=== PATIENT | female | born 1970 ===

== ENCOUNTER 2020-08-19 20:09 | Inpatient (IN) | payer MEDICAID, OTHER ==
--- NOTE | 2020-08-19 21:11 | Emergency Department Report ---
HPI - General Chief Complaint: Dyspnea/Respdistress Time Seen by Provider: 08/19/20 20:47 - HPI HPI: Room 21 The patient is a 49-year-old female present with a chief complaint of shortness of breath. The patient states for the past 6 to 7 days she has had shortness of breath and chest soreness whenever she coughs. Patient states her cough has been productive of yellow sputum. Patient admits to fever at home of 39 C. The patient states she has not received a Covid vaccination. Patient complains of lower abdominal pain and buttocks pain whenever she coughs. ED Past Medical Hx - Past Medical History Hx Hypertension: Yes Hx Psychiatric Treatment: Yes ( anxiety) Hx Asthma: Yes Hx COPD: Yes (2 L home O2) - Surgical History Additional Surgical History: , hysterectomy, hernia repair, ovarian cyst removal - Family History Family history: no significant - Social History Smoking Status: Current Every Day Smoker (1 pack/day) Substance Use Type: None (Denies illicit drug use) ED Review of Systems ROS: Stated complaint: RESP DISTRESS Other details as noted in HPI Constitutional: fever Eyes: denies: eye pain ENT: denies: throat pain Respiratory: cough, shortness of breath Cardiovascular: as per HPI Endocrine: no symptoms reported Gastrointestinal: as per HPI Genitourinary: denies: dysuria Musculoskeletal: myalgia Neurological: denies: headache Physical Exam - Physical Exam Physical Exam: GENERAL: The patient is well-developed well-nourished female lying on stretcher not appearing to be in acute distress. [] HEENT: Normocephalic. Atraumatic. Extraocular motions are intact. Patient has moist mucous membranes. NECK: Supple. Trachea midline CHEST/LUNGS: Diffuse wheezing, diffuse rhonchi. There is no tachycardia. There is no gallop rub or murmur. ABDOMEN: Abdomen is soft, nontender. Patient has normal bowel sounds. There is no abdominal distention. SKIN: There is no rash. There is no edema. There is no diaphoresis. NEURO: The patient is awake, alert, and oriented. The patient is cooperative. The patient has no focal neurologic deficits. The patient has normal speech. GCS 15 MUSCULOSKELETAL:There is no evidence of acute injury. ED Course - Reevaluation(s) Reevaluation #1: 08/20/20 02:01 Patient's walking SPO2 decreased to 89% on 2 L nasal cannula. Will admit the patient to the hospital for further management ED Medical Decision Making - Lab Data Result diagrams: 08/19/20 21:11 08/19/20 21:11 Laboratory Tests 08/19/20 08/19/20 08/19/20 21:11 21:11 21:11 WBC 12.9 H RBC 4.62 Hgb 15.0 H Hct 43.2 H MCV 94 MCH 33 H MCHC 35 H RDW 13.5 Plt Count 319 Lymph % (Auto) 14.6 [place] % (Auto) 2.3 Eos % (Auto) 0.8 Baso % (Auto) 0.4 Lymph # (Auto) 1.9 [place] # (Auto) 0.3 Eos # (Auto) 0.1 Baso # (Auto) 0.0 Seg Neutrophils % 81.9 H Seg Neutrophils # 10.6 H PT 12.5 INR 0.89 Sodium 140 Potassium 3.9 Chloride 101.0 Carbon Dioxide 27 Anion Gap 16 BUN 11 Creatinine 0.5 L Estimated GFR > 60 BUN/Creatinine Ratio 22 Glucose 117 H Calcium 9.0 Total Bilirubin 0.20 AST 18 ALT 19 Alkaline Phosphatase 81 Troponin T NT-Pro-B Natriuret Pep Total Protein 7.1 Albumin 4.4 Albumin/Globulin Ratio 1.6 Lipase Urine Color Urine Turbidity Urine pH Ur Specific [place] Urine Protein Urine Glucose (UA) Urine Ketones Urine Blood Urine Nitrite Urine Bilirubin Urine Urobilinogen Ur Leukocyte Esterase Urine WBC (Auto) Urine RBC (Auto) U Epithel Cells (Auto) Urine Mucus 08/19/20 08/19/20 08/20/20 21:11 23:57 01:22 WBC RBC Hgb Hct MCV MCH MCHC RDW Plt Count Lymph % (Auto) [place] % (Auto) Eos % (Auto) Baso % (Auto) Lymph # (Auto) [place] # (Auto) Eos # (Auto) Baso # (Auto) Seg Neutrophils % Seg Neutrophils # PT INR Sodium Potassium Chloride Carbon Dioxide Anion Gap BUN Creatinine Estimated GFR BUN/Creatinine Ratio Glucose Calcium Total Bilirubin AST ALT Alkaline Phosphatase Troponin T < 0.010 < 0.010 NT-Pro-B Natriuret Pep 145.9 Total Protein Albumin Albumin/Globulin Ratio Lipase 26 Urine Color Yellow Urine Turbidity Clear Urine pH 6.0 Ur Specific [place] 1.009 Urine Protein <15 mg/dl Urine Glucose (UA) Neg Urine Ketones Neg Urine Blood Sm Urine Nitrite Neg Urine Bilirubin Neg Urine Urobilinogen < 2.0 Ur Leukocyte Esterase Neg Urine WBC (Auto) 1.0 Urine RBC (Auto) 1.0 U Epithel Cells (Auto) 1.0 Urine Mucus Few - EKG Data -: EKG Interpreted by Me EKG shows normal: sinus rhythm Rate: normal - EKG Data When compared to previous EKG there are: previous EKG unavailable Interpretation: other (No ischemic changes seen) - Radiology Data Radiology results: report reviewed (Chest x-ray, CT abdomen pelvis), image reviewed (Chest x-ray, CT abdomen pelvis) interpreted by me: Chest x-ray-no definite focal infiltrates, no pneumothorax [address] [address] XRay Report Signed Patient: ANIKA BRIONES MR#: [id number] : 1970 Acct:[id number] Age/Sex: 49 / F ADM Date: 08/19/20 Loc: ED Attending Dr: Ordering Physician: MANN SINGH MD Date of Service: 08/19/20 Procedure(s): XR chest 1V ap Accession Number(s): [id number] cc: MANN SINGH MD Fluoro Time In Minutes: CHEST 1 VIEW 08/19/2020 8:25 PM INDICATION / CLINICAL INFORMATION: Shortness of breath. COMPARISON: None available. FINDINGS: SUPPORT DEVICES: None. HEART / MEDIASTINUM: No significant abnormality. LUNGS / PLEURA: No significant pulmonary or pleural abnormality. No pneumothorax. ADDITIONAL FINDINGS: No significant additional findings. IMPRESSION: 1. No acute findings. Signer Name: Blanca Hernández MD Signed: 08/19/2020 9:32 PM Workstation Name: [id number] Transcribed By: DT Dictated By: Devon Hernández MD Electronically Authenticated By: Devon Hernández MD Signed Date/Time: 08/19/202131 DD/ 29 TD/TT: Print Cancel [address] [address] Cat Scan Report Signed Patient: ANIKA BRIONES MR#: [id number] : 1970 Acct:[id number] Age/Sex: 49 / F ADM Date: 08/19/20 Loc: ED Attending Dr: Ordering Physician: MANN SINGH MD Date of Service: 08/19/20 Procedure(s): CT abdomen pelvis wo con Accession Number(s): [id number] cc: MANN SINGH MD CT ABDOMEN AND PELVIS WITHOUT CONTRAST HISTORY: Left flank pain. COMPARISON: None. TECHNIQUE: CT images of the abdomen and pelvis were obtained without administration of intravenous contrast. All CT scans at this location are performed using CT dose reduction for ALARA by means of automated exposure co ntrol. FINDINGS: Lungs/bones: Patchy multifocal areas of density and groundglass opacities in the lung bases with bilateral atelectasis Abdomen/pelvis: There is diffuse fatty infiltration of the liver which is enlarged. Adrenal glands, spleen and gallbladder appears normal. There is a pancreatic mass in the pancreatic tail measuring 3.1 x 1.9 cm. No pancreatic ductal dilatation. Appendix appears normal. Urinary bladder appears normal. No retroperitoneal adenopathy. No hydronephrosis. Ureters appear normal bilaterally. No acute bone findings are identified. Postsurgical change from prior hernia repair suggested. IMPRESSION: 1. Hepatomegaly with hepatic steatosis. 2. Groundglass patchy opacities in bilateral lower lungs could represent atypical infection, nonspecific. Bilateral atelectasis. 3. No renal or ureteral stone. No hydronephrosis. Signer Name: Chris Ruvalcaba MD Signed: 08/20/2020 1:18 AM Workstation Name: [id number] Transcribed By: CW Dictated By: BRIAN RUVALCABA MD Electronically Authenticated By: BRIAN RUVALCABA MD Signed Date/Time: 08/20/20117 DD/ 4 TD/TT: Print Cancel - Differential Diagnosis Pneumonia, bronchitis, COVID-19, costochondritis Critical care attestation.: If time is entered above; I have spent that time in minutes in the direct care of this critically ill patient, excluding procedure time. ED Disposition Clinical Impression: Bilateral pneumonia, COPD exacerbation, Hypoxia, Suspected COVID-19 virus infection Disposition: OP ADMIT IP TO THIS HOSP Is pt being admited?: Yes Does the pt Need Aspirin: Yes Condition: Fair Instructions: Bacterial Pneumonia (ED), Chronic Obstructive Pulmonary Disease (ED) Referrals: PRIMARY CARE, [Primary Care Provider] - 3-5 Days Time of Disposition: 02:02 (Hospitalist notified (Mildred))
[2020-08-19 21:47] LABS: Alanine Aminotransferase 19 units/L (7-56); Albumin 4.4 g/dL (3.9-5); Blood Urea Nitrogen 11 mg/dL (7-17); Hemolysis Index 1
[2020-08-19 21:53] LABS: BUN/Creatinine Ratio 22; Basophils % (Auto) 0.4 % (0.0-1.8); Eosinophils # (Auto) 0.1 K/mm3 (0.0-0.4); Eosinophils % (Auto) 0.8 % (0.0-4.3); Hematocrit 43.2 % (30.3-42.9); Lymphocytes # (Auto) 1.9 K/mm3 (1.2-5.4); Lymphocytes % (Auto) 14.6 % (13.4-35.0); Mean Corpuscular HGB Conc 35 % (30-34); Mean Corpuscular Volume 94 fl (79-97); Monocytes # (Auto) 0.3 K/mm3 (0.0-0.8); Monocytes % (Auto) 2.3 % (0.0-7.3); Platelet Count 319 K/mm3 (140-440); Red Blood Count 4.62 M/mm3 (3.65-5.03); Red Cell Distribution Width 13.5 % (13.2-15.2)
[2020-08-19 22:02] LABS: INR 0.89 (0.87-1.13)
[2020-08-19] MEDS ORDERED: MAGNESIUM SULFATE 2 GM/50 ML BAG IV ONE (23:15)
[2020-08-19] MEDS ORDERED: ALBUTEROL 2.5 MG/3 ML NEBU IH ONE (23:15)
[2020-08-19] MEDS ORDERED: methylPREDNISolone Sod Succinate 125 MG/2 ML INJ IV ONE (23:15)
[2020-08-19] MEDS ORDERED: IPRATROPIUM 0.02% NEBU 2.5 ML IH ONE (23:15)
[2020-08-19] MEDS ORDERED: ONDANSETRON 4 MG/2 ML INJ IV ONE (23:21)
[2020-08-19] MEDS ORDERED: fentaNYL 100 MCG/2 ML INJ IV ONE (23:21)
[2020-08-20 00:12] LABS: Bilirubin,Urine NEG (Negative); Blood,Urine SM (Negative); Color,Urine Yellow (Yellow); Mucus,Urine FEW /HPF; Protein,Urine <15 mg/dL mg/dL (Negative); Urobilinogen,Urine < 2.0 mg/dL (<2.0)
[2020-08-20] MEDS ORDERED: AZITHROMYCIN/NS 500 MG/250 ML 500 MG/250 ML BAG IV ONE (01:59)
[2020-08-20] MEDS ORDERED: cefTRIAXone/NS 1 GM/50 ML 1 GM/50 ML BAG IV ONE (01:59)
--- NOTE | 2020-08-20 02:41 | History and Physical Report ---
History of Present Illness Date of examination: 08/20/20 Date of admission: 08/20/20 Chief complaint: COPD exacerbation History of present illness: The patient is a 49-year-old female present with a chief complaint of shortness of breath. The patient states for the past 6 to 7 days she has had shortness of breath and chest soreness whenever she coughs. Patient states her cough has been productive of yellow sputum. Patient admits to fever at home of 39 C. The patient states she has not received a Covid vaccination. Patient complains of lower abdominal pain and buttocks pain whenever she coughs. ED work-up WBC 12.9 hemoglobin 15.0, platelets 319, creatinine 0.5, serum glucose 117, troponin negative, BNP 145, CT of the abdomen and pelvics done and it shows hepatomegaly with hepatic steatosis, groundglass patchy opacity in bilateral lower lung likely secondary to bacterial infection/Covid infection, but negative for renal stone or hydronephrosis. Patient is seen at her bedside. Patient alert and oriented x3 patient is on oxygen at 2 L nasal cannula. Patient medical record patient uses oxygen at home. Will admit patient for COPD exacerbation and pneumonia. Past History Past Medical History: COPD Past Surgical History: No surgical history Social history: no significant social history, lives with family Family history: no significant family history Medications and Allergies Allergies Allergy/AdvReac Type Severity Reaction Status Date / Time No Known Allergies Allergy Verified 08/19/20 23:16 Active Meds: Active Medications Azithromycin (Zithromax/Ns) 500 mg in 250 mls @ 250 mls/hr IV ONCE ONE; Protocol Stop: 08/20/20 02:58 Review of Systems Constitutional: fatigue Ears, nose, mouth and throat: no epistaxis, no bleeding gums Cardiovascular: shortness of breath Respiratory: cough, cough with sputum, shortness of breath, dyspnea on exertion, wheezing Gastrointestinal: no melena Rectal: no hemorrhoids Integumentary: no rash, no pruritis Neurological: no head injury Psychiatric: no suicidal ideation, no disorientation, no hallucinations Hematologic/Lymphatic: no easy bruising, no easy bleeding Allergic/Immunologic: no urticaria, no allergic rhinitis Exam - Constitutional Vitals: Temp Pulse Resp BP Pulse Ox 84 20 146/127 87 08/20/20 01:40 08/20/20 01:40 08/20/20 00:01 08/20/20 01:40 General appearance: Present: mild distress, well-nourished - EENT Eyes: Present: PERRL ENT: hearing intact, clear oral mucosa - Neck Neck: Present: supple, normal ROM - Respiratory Respiratory effort: normal Respiratory: bilateral: CTA - Cardiovascular Heart rate: 84 Heart Sounds: Present: S1 & S2. Absent: rub, click - Extremities Extremities: pulses symmetrical, No edema Peripheral Pulses: within normal limits - Abdominal General gastrointestinal: Present: soft, non-tender, non-distended, normal bowel sounds Female genitourinary: Present: normal - Integumentary Integumentary: Present: clear, warm, dry - Musculoskeletal Musculoskeletal: gait normal, strength equal bilaterally - Psychiatric Psychiatric: appropriate mood/affect, intact judgment & insight, cooperative - Neurologic Neurologic: CNII-XII intact, moves all extremities - Allied Health Allied health notes reviewed: nursing, PT HEART Score - HEART Score Troponin: Troponin T < 0.010 ng/mL (0.00-0.029) 08/20/20 01:22 Results - Labs CBC & Chem 7: 08/19/20 21:11 08/19/20 21:11 Labs: Abnormal lab results 08/19/20 08/19/20 Range/Units 21:11 21:11 WBC 12.9 H (4.5-11.0) K/mm3 Hgb 15.0 H (10.1-14.3) gm/dl Hct 43.2 H (30.3-42.9) % MCH 33 H (28-32) pg MCHC 35 H (30-34) % Seg Neutrophils % 81.9 H (40.0-70.0) % Seg Neutrophils # 10.6 H (1.8-7.7) K/mm3 Creatinine 0.5 L (0.6-1.2) mg/dL Glucose 117 H (65-100) mg/dL Assessment and Plan - Patient Problems (1) COPD exacerbation Current Visit: Yes Status: Acute Plan to address problem: respiratory care bronchodilator and oxygen supplement Director Outcomes consult (2) Bilateral pneumonia Current Visit: Yes Status: Acute Plan to address problem: Continue antibiotic therapy Blood culture ABGs, advised on use of incentive spirometer (3) Hypoxia Current Visit: Yes Status: Acute Plan to address problem: 2/2 to COPD/PNA Continue abx therapy and supplement oxygen (4) Suspected COVID-19 virus infection Current Visit: Yes Status: Acute Plan to address problem: Isolation per covid protocol Pt said she did not get covid vaccine abx therapy ascorbic acid, vitamin d, and zinc sulphate check inflammatory [id number] (5) DVT prophylaxis Current Visit: Yes Status: Acute Plan to address problem: lovenox
[2020-08-20] MEDS ORDERED: ALUM-MAG HYDROXIDE-SIMETHICONE 200-200-20MG/5ML ORAL LIQD 30 ML PO PRN (04:08)
[2020-08-20] MEDS ORDERED: METOCLOPRAMIDE 10 MG/2 ML INJ IV PRN (04:08)
[2020-08-20] MEDS ORDERED: SENNOSIDES 8.6 MG TAB PO PRN (04:08)
[2020-08-20] MEDS ORDERED: ACETAMINOPHEN 325 MG TAB PO PRN (04:08)
[2020-08-20] MEDS ORDERED: ONDANSETRON 4 MG/2 ML INJ IV PRN (04:08)
[2020-08-20] MEDS ORDERED: traZODone 50 MG TAB PO PRN (04:14)
[2020-08-20] MEDS: traMADol 50 MG TAB PO PRN ×2 (05:18→22:37)
[2020-08-20 07:21] LABS: C-Reactive Protein 1.3 mg/dL (0.00-1.30)
--- NOTE | 2020-08-20 07:22 | Event Note ---
Date: 08/20/20 Patient feels better. 49-year-old shortness of breath for 6 to 7 days yellow productive cough low-grade fever found to be hypoxic on admission. Patient currently saturating well with 2 L. I did review CT scan results with her with hepatomegaly and groundglass opacities on bilateral lungs. Patient did have some lower abdominal pain is since resolving. Chest x-ray essentially unremarkable the groundglass appearance was found on CT scan. #1 COPD with pneumonia. #2 persons adventures for COVID-19 pneumonia. #3 bilateral pneumonia #4 diabetes #5 hypertension #6 generalized anxiety disorder. All medications will be reconciled now.
[2020-08-20] MEDS: ALBUTEROL 2.5 MG/3 ML NEBU IH SCH ×3 (08:21→21:47)
[2020-08-20] MEDS: ENOXAPARIN 40 MG/0.4 ML INJ SUB-Q SCH (09:04)
[2020-08-20] MEDS: ASCORBIC ACID 500 MG TAB PO SCH (09:05)
[2020-08-20] MEDS: CHOLECALCIFEROL (VIT D3) 5,000 UNIT TAB PO SCH (09:05)
[2020-08-20] MEDS: ZINC SULFATE 220 MG CAP PO SCH (09:05)
[2020-08-20] MEDS ORDERED: NON-FORMULARY EACH (Alprazolam [Xanax Tab] 2 MG Tablet) PO PRN (09:53)
[2020-08-20] MEDS ORDERED: NON-FORMULARY EACH (Budesonide/Formoterol Fumarate [Budesonide-Formoterol 160-4.5] 10.2 GM IH SCH (10:00)
[2020-08-20] MEDS ORDERED: NON-FORMULARY EACH (Albuterol Sulfate [Proair Respiclick] 90 MCG Aer.Pow.Ba) IH SCH (10:00)
[2020-08-20] MEDS ORDERED: NON-FORMULARY EACH (Omeprazole [Omeprazole] 40 MG Capsule.Dr) PO SCH (10:00)
[2020-08-20] MEDS ORDERED: ALBUTEROL 2.5 MG/3 ML NEBU IH PRN (10:13)
[2020-08-20] MEDS ORDERED: ALPRAZolam 1 MG TAB PO PRN (10:25)
--- NOTE | 2020-08-20 10:35 | Event Note ---
Date: 08/20/20 patient admitted for COPD exacerbation and abdominal pain, concern for COVID. 1. Stop all nebs 2. Keep patient as dry as possible 3. Will start IV steroids, as this will help if COVID positive 4. Prone 5. Pain control per primary.
[2020-08-20] MEDS: FUROSEMIDE 20 MG/2 ML INJ IV ONE ×2 (11:00→11:08)
[2020-08-20] MEDS: methylPREDNISolone Sod Succinate 40 MG/1 ML INJ IV SCH ×2 (11:00→18:01)
[2020-08-20] MEDS: PANTOPRAZOLE 40 MG TAB PO SCH ×2 (11:00→21:33)
[2020-08-20] MEDS: buPROPion XL 150 MG TAB PO SCH (11:01)
[2020-08-20] MEDS: GABAPENTIN 100 MG CAP PO SCH ×2 (11:01→17:56)
[2020-08-20] MEDS: rOPINIRole 1 MG TAB PO SCH (21:33)
[2020-08-20] MEDS: MONTELUKAST 10 MG TAB PO SCH (21:33)
[2020-08-20] MEDS: ARFORMOTEROL 15 MCG/2 ML NEBU IH SCH (21:46)
[2020-08-20] MEDS: BUDESONIDE 0.5 MG/2 ML NEBU IH SCH (21:47)
[2020-08-20] MEDS ORDERED: NON-FORMULARY EACH (Montelukast 10 MG) PO SCH (22:00)
[2020-08-20] MEDS ORDERED: ZOLPIDEM 5 MG TAB PO PRN (22:00)
[2020-08-20] MEDS ORDERED: MORPHINE 2 MG/1 ML INJ IV ONE (23:03)
[2020-08-21] MEDS: GABAPENTIN 100 MG CAP PO SCH ×3 (02:48→17:57)
[2020-08-21] MEDS: methylPREDNISolone Sod Succinate 40 MG/1 ML INJ IV SCH ×3 (02:48→18:22)
[2020-08-21] MEDS: cefTRIAXone/NS 2 GM/100 ML 2 GM/100 ML BAG IV SCH (04:40)
[2020-08-21] MEDS: AZITHROMYCIN/NS 500 MG/250 ML 500 MG/250 ML BAG IV SCH (04:41)
[2020-08-21 07:31] LABS: Hematocrit 38.4 % (30.3-42.9); Hemoglobin 13.3 gm/dl (10.1-14.3); Mean Corpuscular HGB Conc 35 % (30-34); Mean Corpuscular Volume 94 fl (79-97); Platelet Count 318 K/mm3 (140-440); Red Blood Count 4.07 M/mm3 (3.65-5.03); Red Cell Distribution Width 13.7 % (13.2-15.2)
[2020-08-21 07:49] LABS: Alanine Aminotransferase 29 units/L (7-56); Albumin 4.2 g/dL (3.9-5); Blood Urea Nitrogen 13 mg/dL (7-17); Calcium 9.3 mg/dL (8.4-10.2); Hemolysis Index 2
[2020-08-21 07:53] LABS: BUN/Creatinine Ratio 33
--- NOTE | 2020-08-21 08:08 | Progress Note ---
Assessment and Plan - Patient Problems (1) Bilateral pneumonia Current Visit: Yes Status: Acute Plan to address problem: Patient with bilateral groundglass appearance on CT scan unremarkable chest x- ray. When visualized CT scan no halo. Appears to be diffuse versus mosaic in appearance Could be infectious etiology versus inflammatory at this point. Patient has a long history of smoking. Therefore will suggest further outpatient work-up. For now we will treat for possibly underlying atypical infection Continue to treat COPD. Antibiotics to cover atypical organisms (2) COPD exacerbation Current Visit: Yes Status: Acute Plan to address problem: Patient ruled out for COVID-19. Will resume nebulizers -Nebulizers every 6 hours has improved patient's oxygenation -Maintain empiric antibiotics -Continue patient on metered-dose inhalers now -IV steroids in anticipation of change to p.o. steroids for potential discharge 1 to 2 days (3) DVT prophylaxis Current Visit: Yes Status: Acute Plan to address problem: Lovenox (4) Hypoxia Current Visit: Yes Status: Acute Plan to address problem: Resolving with 4 L oxygen will wean down as tolerated to 3 L today and continue progression. Subjective Date of service: 08/21/20 Principal diagnosis: Acute hypoxic respiratory failure COPD exacerbation Interval history: 49-year-old female presents with acute hypoxic respiratory failure secondary to COPD. Patient's advanced tobacco use for greater than 35 years. Unknown pack- year history. Presented yesterday with acute hypoxic respiratory failure. Chest x-ray unremarkable however CT scan findings showed bilateral groundglass appearances. Patient placed on nebulizers, steroids and empiric antibiotics. Patient also restarted on her scheduled metered-dose inhalers which included a LABA and inhaled steroid. Patient today states that she feels much better foster billy still has a lot of phlegm and cough. No fever chills. States respirations are improved. Patient also ruled out for COVID-19 via recent serology Objective - Constitutional Vitals: Vital Signs - 12hr 08/20/20 08/20/20 08/20/20 20:45 21:43 22:00 Temperature 97.8 F Pulse Rate 54 L Pulse Rate [ 58 L Anterior Bilateral Throughout] Respiratory 24 Rate Respiratory 18 Rate [Anterior Bilateral Throughout] Blood Pressure 132/70 O2 Sat by Pulse 96 95 Oximetry 08/20/20 08/21/20 08/21/20 23:43 00:13 04:45 Temperature 98.6 F Pulse Rate 50 L Pulse Rate [ Anterior Bilateral Throughout] Respiratory 20 18 20 Rate Respiratory Rate [Anterior Bilateral Throughout] Blood Pressure 126/64 O2 Sat by Pulse 94 Oximetry General appearance: Present: no acute distress, well-nourished - Respiratory Respiratory: bilateral: diminished, wheezing, negative: rhonchi (Few rhonchi bilaterally as well.) - Breasts Breasts: deferred - Cardiovascular Rhythm: regular Heart Sounds: Present: S1 & S2. Absent: gallop, rub Extremities: pulses intact, No edema, normal color, Full ROM - Gastrointestinal General gastrointestinal: Present: soft, non-tender, non-distended, normal bowel sounds - Musculoskeletal Musculoskeletal: strength equal bilaterally, generalized weakness - Neurologic Neurologic: moves all extremities - Psychiatric Psychiatric: memory intact, appropriate mood/affect, intact judgment & insight - Labs CBC & Chem 7: 08/21/20 06:15 08/21/20 06:15 Labs: Abnormal lab results 08/20/20 08/20/20 08/20/20 Range/Units 11:03 16:43 21:42 WBC (4.5-11.0) K/mm3 MCH (28-32) pg MCHC (30-34) % Creatinine (0.6-1.2) mg/dL Glucose (65-100) mg/dL POC Glucose 155 H 163 H 167 H (70-105) mg/dL 08/21/20 08/21/20 08/21/20 Range/Units 06:15 06:15 07:38 WBC 17.7 H (4.5-11.0) K/mm3 MCH 33 H (28-32) pg MCHC 35 H (30-34) % Creatinine 0.4 L (0.6-1.2) mg/dL Glucose 156 H (65-100) mg/dL POC Glucose 168 H (70-105) mg/dL HEART Score - HEART Score Troponin: Troponin T < 0.010 ng/mL (0.00-0.029) 08/20/20 01:22
[2020-08-21] MEDS: BUDESONIDE 0.5 MG/2 ML NEBU IH SCH ×2 (08:20→19:17)
[2020-08-21] MEDS: ALBUTEROL 2.5 MG/3 ML NEBU IH SCH ×4 (08:20→19:20)
[2020-08-21] MEDS: ARFORMOTEROL 15 MCG/2 ML NEBU IH SCH ×2 (08:21→19:17)
[2020-08-21] MEDS: PANTOPRAZOLE 40 MG TAB PO SCH ×2 (09:25→22:10)
[2020-08-21] MEDS: ZINC SULFATE 220 MG CAP PO SCH (09:25)
[2020-08-21] MEDS: CHOLECALCIFEROL (VIT D3) 5,000 UNIT TAB PO SCH (09:25)
[2020-08-21] MEDS: ENOXAPARIN 40 MG/0.4 ML INJ SUB-Q SCH (09:25)
[2020-08-21] MEDS: ASCORBIC ACID 500 MG TAB PO SCH (09:25)
[2020-08-21] MEDS: buPROPion XL 150 MG TAB PO SCH (09:25)
[2020-08-21] MEDS ORDERED: PROMETHAZINE/CODEINE 6.25-10 MG ORAL LIQD 5 ML PO PRN (10:58)
--- NOTE | 2020-08-21 11:52 | Progress Note ---
Assessment and Plan 49 y/o female with acute respiratory failure. 1. Continue steroids, given concern for COPD 2. Ok with nebs, now that covid test is negative 3. Continue to keep patient as dry as possible 4. Needs bedside jason, will ask RT's if this can be done in house. Would suggest follow up and do as outpatient but patient has no funding 5. Wean FIO2 for sats >88%, will need walk test prior to discharge. Subjective Date of service: 08/21/20 Principal diagnosis: Acute hypoxic respiratory failure COPD exacerbation Interval history: Covid negative. Stable on 4 liters NC. Objective Vital Signs - 12hr 08/21/20 08/21/20 08/21/20 00:13 04:45 08:00 Temperature 98.6 F Pulse Rate 50 L Pulse Rate [ 93 H Anterior Bilateral Throughout] Respiratory 18 20 Rate Respiratory 19 Rate [Anterior Bilateral Throughout] Blood Pressure 126/64 O2 Sat by Pulse 94 Oximetry 08/21/20 08/21/20 08:22 08:40 Temperature Pulse Rate Pulse Rate [ Anterior Bilateral Throughout] Respiratory Rate Respiratory Rate [Anterior Bilateral Throughout] Blood Pressure O2 Sat by Pulse 98 95 Oximetry CBC and BMP: 08/21/20 06:15 08/21/20 06:15 ABG, PT/INR, D-dimer: PT/INR, D-dimer PT 12.5 Sec. (12.2-14.9) 08/19/20 21:11 INR 0.89 (0.87-1.13) 08/19/20 21:11 D-Dimer 215.79 ng/mlDDU (0-234) 08/20/20 06:05 Abnormal lab findings: Abnormal Labs 08/19/20 08/19/20 08/20/20 21:11 21:11 06:05 WBC 12.9 H Hgb 15.0 H Hct 43.2 H MCH 33 H MCHC 35 H Seg Neutrophils % 81.9 H Seg Neutrophils # 10.6 H Creatinine 0.5 L Glucose 117 H POC Glucose Lactate Dehydrogenase 205 H 08/20/20 08/20/20 08/20/20 11:03 16:43 21:42 WBC Hgb Hct MCH MCHC Seg Neutrophils % Seg Neutrophils # Creatinine Glucose POC Glucose 155 H 163 H 167 H Lactate Dehydrogenase 08/21/20 08/21/20 08/21/20 06:15 06:15 07:38 WBC 17.7 H Hgb Hct MCH 33 H MCHC 35 H Seg Neutrophils % Seg Neutrophils # Creatinine 0.4 L Glucose 156 H POC Glucose 168 H Lactate Dehydrogenase 08/21/20 11:31 WBC Hgb Hct MCH MCHC Seg Neutrophils % Seg Neutrophils # Creatinine Glucose POC Glucose 118 H Lactate Dehydrogenase
--- NOTE | 2020-08-21 14:18 | Consultation ---
History of Present Illness - Reason for Consult Consult date: 08/21/20 r/o COVID Requesting physician: FARHAD BOWSER - History of Present Illness 49-year-old female with tobacco abuse, asthma, hypertension, anxiety, admitted on 08/19/2020 secondary to 2-week history of worsening shortness of breath associated with cough with yellow sputum and a fever at home. Patient has not been vaccinated for COVID-19. Patient smokes a pack a day for several years. Patient recently traveled to [place] voluntarily on 08/03/2019 of symptoms. She was tested for COVID-19 which was negative. On arrival, temperature 98, HR 83, RR 22, O2 sat dropped to 89 ambulation, BP 148/87. Initial WBC 12.9. Hemoglobin 15. Platelets 319. D-dimer 215. CRP 1.3. Urinalysis negative. SARS-CoV-2 PCR negative. Chest x-ray unremarkable. CT abdomen shows hepatomegaly with hepatic steatosis. Review of Systems: positive in bold print General: fever, chills, malaise Cutaneous: rash, pruritus Head: headaches or injury Eyes: changes in vision, eye pain, double vision Ears: ear pain, ear discharge, ringing or hearing loss Nose: nose bleeding, stuffiness Mouth & throat: bleeding gums, horseness, no dental problems, or swollen glands Neck: no pain, node enlargement/lumps, tyroid enlargement or tenderness Respiratory: SOB, cough, [place], wheezing, sputum, hemoptysis, pleuritic chest pain Cardiovascular: chest pain, leg edema, cyanosis, [place], orthopnea Musculoskeletal: edema, deformities, pain Gastrointestinal: nausea, vomiting, hematemesis, diarrhea, constipation, melena, bright red blood in stools, fecal incontinence, jaundice Genitourinary/Reproductive: frequent urination, dysuria, hematuria, incontinence Neurogical: seizures, headaches, weakness, paresthesias, loss of speech or vision; memory loss, vertigo, tremors, numbness Psychiatric: stable mood; excessive anxiety, sadness or moodiness Past History Past Medical History: COPD Past Surgical History: No surgical history Social history: no significant social history, lives with family Family history: no significant family history Medications and Allergies Allergies Allergy/AdvReac Type Severity Reaction Status Date / Time No Known Allergies Allergy Verified 08/19/20 23:16 Home Medications Medication Instructions Recorded Confirmed Last Taken Type ALPRAZolam [Xanax TAB] 2 mg PO BID PRN 08/20/20 08/20/20 Unknown History Albuterol Sulfate [Proair 90 mcg IH PRN 08/20/20 08/20/20 Unknown History Respiclick] Budesonide/Formoterol Fumarate 10.2 gm IH PRN 08/20/20 08/20/20 Unknown History [Budesonide-Formoterol 160-4.5] Cetirizine HCl [Cetirizine 10mg 10 mg PO BID 08/20/20 08/20/20 Unknown History chew] Gabapentin [Neurontin] 100 mg PO Q8HR 08/20/20 08/20/20 Unknown History Montelukast 10 mg PO QHS 08/20/20 08/20/20 Unknown History Omeprazole 40 mg PO BID 08/20/20 08/20/20 Unknown History Zolpidem [Ambien] 5 mg PO QHS PRN 08/20/20 08/20/20 Unknown History buPROPion XL [Wellbutrin Xl] 150 mg PO QAM 08/20/20 08/20/20 Unknown History rOPINIRole [Requip] 2 mg PO QHS 08/20/20 08/20/20 Unknown History Active Meds: Active Medications Acetaminophen (Acetaminophen 325 Mg Tab) 650 mg PO Q4H PRN PRN Reason: Pain MILD(1-3)/Fever >100.5/GARCIA Al Hydrox/Mg Hydrox/Simethicone (Alum-Mag Hydroxide-Simethicone [phone]/5ml Oral Liqd 30 Ml) 30 ml PO Q4H PRN PRN Reason: Indigestion Albuterol (Albuterol 2.5 Mg/3 Ml Nebu) 2.5 mg IH Q6HRT [facility] Last Admin: 08/21/20 13:23 Dose: 2.5 mg Documented by: Albuterol (Albuterol 2.5 Mg/3 Ml Nebu) 2.5 mg IH Q4H PRN PRN Reason: Shortness Of Breath Alprazolam (Alprazolam 1 Mg Tab) 2 mg PO Q12H PRN PRN Reason: Anxiety Last Admin: 08/20/20 17:56 Dose: 2 mg Documented by: Alprazolam (Alprazolam 1 Mg Tab) 1 mg PO BID [facility] Arformoterol Tartrate (Arformoterol 15 Mcg/2 Ml Nebu) 15 mcg IH Q12HRT [facility] Last Admin: 08/21/20 08:21 Dose: 15 mcg Documented by: Ascorbic Acid (Ascorbic Acid 500 Mg Tab) 500 mg PO QDAY [facility] Last Admin: 08/21/20 09:25 Dose: 500 mg Documented by: Budesonide (Budesonide 0.5 Mg/2 Ml Nebu) 0.5 mg IH Q12HRT [facility] Last Admin: 08/21/20 08:20 Dose: 0.5 mg Documented by: Bupropion HCl (Bupropion Xl 150 Mg Tab) 150 mg PO QAM [facility] Last Admin: 08/21/20 09:25 Dose: 150 mg Documented by: Cholecalciferol (Cholecalciferol (Vit D3) 5,000 Unit Tab) 5,000 unit PO DAILY [facility] Last Admin: 08/21/20 09:25 Dose: 5,000 unit Documented by: Enoxaparin Sodium (Enoxaparin 40 Mg/0.4 Ml Inj) 40 mg SUB-Q DAILY [facility]; Protocol Last Admin: 08/21/20 09:25 Dose: 40 mg Documented by: Gabapentin (Gabapentin 100 Mg Cap) 100 mg PO Q8H [facility] Last Admin: 08/21/20 09:28 Dose: 100 mg Documented by: Ceftriaxone Sodium (Rocephin/Ns 2 Gm/100 Ml) 2 gm in 100 mls @ 200 mls/hr IV Q24H [facility]; Protocol Last Admin: 08/21/20 04:40 Dose: 200 mls/hr Documented by: Azithromycin (Zithromax/Ns) 500 mg in 250 mls @ 250 mls/hr IV Q24H [facility]; Protocol Last Admin: 08/21/20 04:41 Dose: 250 mls/hr Documented by: Methylprednisolone Sodium Succinate (Methylprednisolone Sod Succinate 40 Mg/1 Ml Inj) 40 mg IV Q8H [facility] Last Admin: 08/21/20 12:02 Dose: 40 mg Documented by: Metoclopramide HCl (Metoclopramide 10 Mg/2 Ml Inj) 10 mg IV Q6H PRN PRN Reason: Nausea And Vomiting Montelukast Sodium (Montelukast 10 Mg Tab) 10 mg PO QHS [facility] Last Admin: 07/03/21 21:33 Dose: 10 mg Documented by: Ondansetron HCl (Ondansetron 4 Mg/2 Ml Inj) 4 mg IV Q8H PRN PRN Reason: Nausea And Vomiting Pantoprazole Sodium (Pantoprazole 40 Mg Tab) 40 mg PO BID [facility] Last Admin: 08/21/20 09:25 Dose: 40 mg Documented by: Promethazine HCl/Codeine (Promethazine/Codeine 6.25-10 Mg Oral Liqd 5 Ml) 5 ml PO Q6H PRN PRN Reason: Cough Ropinirole HCl (Ropinirole 1 Mg Tab) 2 mg PO QHS [facility] Last Admin: 08/20/20 21:33 Dose: 2 mg Documented by: Senna (Sennosides 8.6 Mg Tab) 8.6 mg PO Q12HR PRN PRN Reason: Constipation Sodium Chloride (Sodium Chloride 0.9% 10 Ml Flush Syringe) 10 ml IV BID [facility] Last Admin: 08/21/20 09:26 Dose: 10 ml Documented by: Sodium Chloride (Sodium Chloride 0.9% 10 Ml Flush Syringe) 10 ml IV PRN PRN PRN Reason: LINE FLUSH Tramadol HCl (Tramadol 50 Mg Tab) 50 mg PO Q4H PRN PRN Reason: Pain, Moderate (4-6) Last Admin: 08/20/20 05:18 Dose: 50 mg Documented by: Trazodone HCl (Trazodone 50 Mg Tab) 50 mg PO QHS PRN PRN Reason: Insomnia Zinc Sulfate (Zinc Sulfate 220 Mg Cap) 220 mg PO QDAY [facility] Last Admin: 08/21/20 09:25 Dose: 220 mg Documented by: Physical Examination - Physical Exam Narrative exam: General appearance: Alert in NAD pleasant Eyes: anicteric sclerae, moist conjunctivae; no lid-lag; PERRLA HENT: Normocephalic, Atraumatic; normal external ears, nares open, oropharynx clear Neck: supple, tracheal midline, no JVD Lungs: jade rhonchi CV: RRR no murmur Abdomen: Soft, non-tender; no masses or hepatosplenomegaly Extremities: no edema, no cyanosis Skin: No rash. Psych: no agitated Neuro: alert and oriented x 3. Moving all extermities - Constitutional Vitals: Vital Signs Temp Pulse Resp BP Pulse Ox 98.6 F 69 17 126/64 95 08/21/20 04:45 08/21/20 13:23 08/21/20 13:23 08/21/20 04:45 08/21/20 08:40 Temperature -Last 24 Hours Temperature 98.6 F Temperature 97.8 F Temperature 98.1 F Results - Labs CBC & Chem 7: 08/21/20 06:15 08/21/20 06:15 Labs: Abnormal lab results 08/20/20 08/20/20 08/21/20 Range/Units 16:43 21:42 06:15 WBC 17.7 H (4.5-11.0) K/mm3 MCH 33 H (28-32) pg MCHC 35 H (30-34) % Creatinine (0.6-1.2) mg/dL Glucose (65-100) mg/dL POC Glucose 163 H 167 H (70-105) mg/dL 08/21/20 08/21/20 08/21/20 Range/Units 06:15 07:38 11:31 WBC (4.5-11.0) K/mm3 MCH (28-32) pg MCHC (30-34) % Creatinine 0.4 L (0.6-1.2) mg/dL Glucose 156 H (65-100) mg/dL POC Glucose 168 H 118 H (70-105) mg/dL Assessment and Plan Cultures: Blood culture 08/20/2020 no growth today Assessment: 49-year-old female with tobacco abuse, asthma, hypertension, anxiety, admitted on 08/19/2020 secondary to 2-week history of worsening shortness of breath associated with cough with yellow sputum and a fever at home: #Leukocytosis: Patient with fever at home. Possible secondary to bilateral pneumonia #Bilateral pneumonia: CAP vs possibly associated with COPD exacerbation. SARS-CoV-2 PCR negative x2. #Acute hypoxemic respiratory failure: Likely secondary to pneumonia/? COPD exacerbation. #Tobacco abuse Recommendations: -Continue azithromycin and ceftriaxone -Check procalcitonin -Check Legionella urine antigen and strep pneumoniae urine antigen -Check HIV test -Pulmonary on board -If clinically better is better okay to discharge on Levaquin 750 g p.o. once a day total 5 days Will follow. Rae Griggs MD Infectious Diseases [facility] [employer] M [phone] O [phone]
[2020-08-21 14:42] LABS: Band Neutrophils # (Manual) 0.5 K/mm3; Myelocytes # (Manual) 0.2 K/mm3; Platelet Estimate Consistent w Auto; Stomatocytes Few; Total Cells Counted 100
[2020-08-21] MEDS: traMADol 50 MG TAB PO PRN (15:39)
[2020-08-21] MEDS: MORPHINE 2 MG/1 ML INJ IV PRN (15:54)
[2020-08-21] MEDS: MONTELUKAST 10 MG TAB PO SCH (22:10)
[2020-08-21] MEDS: ALPRAZolam 1 MG TAB PO SCH (22:10)
[2020-08-21] MEDS: rOPINIRole 1 MG TAB PO SCH (22:10)
[2020-08-22] MEDS: methylPREDNISolone Sod Succinate 40 MG/1 ML INJ IV SCH ×2 (02:00→10:52)
[2020-08-22] MEDS: GABAPENTIN 100 MG CAP PO SCH ×2 (02:00→10:52)
[2020-08-22] MEDS: cefTRIAXone/NS 2 GM/100 ML 2 GM/100 ML BAG IV SCH (04:18)
[2020-08-22] MEDS: AZITHROMYCIN/NS 500 MG/250 ML 500 MG/250 ML BAG IV SCH (04:19)
[2020-08-22] MEDS: MORPHINE 2 MG/1 ML INJ IV PRN ×2 (06:06→13:54)
[2020-08-22] MEDS: ALBUTEROL 2.5 MG/3 ML NEBU IH SCH ×3 (07:40→13:48)
[2020-08-22] MEDS: BUDESONIDE 0.5 MG/2 ML NEBU IH SCH (07:41)
[2020-08-22] MEDS: ARFORMOTEROL 15 MCG/2 ML NEBU IH SCH (07:41)
[2020-08-22] MEDS: CHOLECALCIFEROL (VIT D3) 5,000 UNIT TAB PO SCH (09:13)
[2020-08-22] MEDS: ASCORBIC ACID 500 MG TAB PO SCH (09:13)
[2020-08-22] MEDS: PANTOPRAZOLE 40 MG TAB PO SCH (09:13)
[2020-08-22] MEDS: ALPRAZolam 1 MG TAB PO SCH (09:13)
[2020-08-22] MEDS: buPROPion XL 150 MG TAB PO SCH (09:13)
[2020-08-22] MEDS: ZINC SULFATE 220 MG CAP PO SCH (09:13)
[2020-08-22] MEDS: ENOXAPARIN 40 MG/0.4 ML INJ SUB-Q SCH (09:17)
--- NOTE | 2020-08-22 09:21 | Progress Note ---
Assessment and Plan Cultures: Blood culture 08/20/2020 no growth today Assessment: 49-year-old female with tobacco abuse, asthma, hypertension, anxiety, admitted on 08/19/2020 secondary to 2-week history of worsening shortness of breath associated with cough with yellow sputum and a fever at home: #Leukocytosis: Patient with fever at home. Possible secondary to bilateral pneumonia, leukocytosis up, likely a reflection of IV Solu-Medrol #Bilateral pneumonia: CAP vs possibly associated with COPD exacerbation. SARS-CoV-2 PCR negative x2. CRP 1.3. #Acute hypoxemic respiratory failure: Likely secondary to pneumonia/? COPD exacerbation. #Tobacco abuse Recommendations: -Continue azithromycin and ceftriaxone -Follow-up procalcitonin, pending -Follow-up Legionella urine antigen and strep pneumoniae urine antigen -Pulmonary on board -okay to discharge on Levaquin 750 g p.o. once a day total 5 days Will follow. Rae Griggs MD Infectious Diseases [employer] [facility] M [phone] O [phone] Subjective Date of service: 08/22/20 Principal diagnosis: Acute hypoxic respiratory failure COPD exacerbation Interval history: Patient feels much better. No shortness of breath, cough improving. No fever. Objective - Exam Narrative Exam: General appearance: Alert in NAD pleasant Eyes: anicteric sclerae, moist conjunctivae; no lid-lag; PERRLA HENT: Normocephalic, Atraumatic; normal external ears, nares open, oropharynx clear Neck: supple, tracheal midline, no JVD Lungs: Scattered bilateral crackles CV: RRR no murmur Abdomen: Soft, non-tender; no masses or hepatosplenomegaly Extremities: no edema, no cyanosis Skin: No rash. Psych: no agitated Neuro: alert and oriented x 3. Moving all extermities - Constitutional Vitals: Vital Signs Temp Pulse Resp BP Pulse Ox 98.7 F 57 L 18 156/58 93 08/22/20 05:13 08/22/20 05:13 08/22/20 06:36 08/22/20 05:13 08/22/20 05:13 Temperature -Last 24 Hours Temperature 98.7 F Temperature 98.7 F Temperature 97.9 F Temperature 99.1 F - Labs CBC & Chem 7: 08/21/20 06:15 07/04/21 06:15 Labs: Abnormal lab results 08/21/20 08/21/20 08/21/20 Range/Units 06:15 11:31 15:54 Seg Neuts % (Manual) 90.0 H (40.0-70.0) % Lymphocytes % (Manual) 4.0 L (13.4-35.0) % Seg Neutrophils # Man 15.9 H (1.8-7.7) K/mm3 Lymphocytes # (Manual) 0.7 L (1.2-5.4) K/mm3 POC Glucose 118 H 129 H (70-105) mg/dL 08/21/20 08/22/20 Range/Units 21:26 07:41 Seg Neuts % (Manual) (40.0-70.0) % Lymphocytes % (Manual) (13.4-35.0) % Seg Neutrophils # Man (1.8-7.7) K/mm3 Lymphocytes # (Manual) (1.2-5.4) K/mm3 POC Glucose 148 H 133 H (70-105) mg/dL
--- NOTE | 2020-08-22 11:51 | Discharge Summary ---
Providers - Providers Date of Admission: 08/20/20 04:08 Date of discharge: 08/22/20 Attending physician: IRINEO LANDIN 08/20/20 04:08 Consult to Physician [CONS] Routine Comment: Consulting Provider: ROBERTO VARGAS Physician Instructions: Reason For Exam: COPD with hypoxia 08/20/20 04:15 Consult to Physician [CONS] Routine Comment: Consulting Provider: SHAWANDA LOBO Physician Instructions: Reason For Exam: PUI Primary care physician: LIQUOR RUNNER Hospitalization Condition: Fair Pertinent studies: Chest x-ray unremarkable CT scan abdomen unremarkable except for bilateral groundglass appearance lungs. Hospital course: 49-year-old female with a history of hypertension COPD presented with acute respiratory failure. Hypoxic respiratory failure secondary to pneumonia and COPD exacerbation. Patient was admitted placed on steroids, Solu-Medrol, oxygen supplementation and empiric antibiotics. Patient defervesced well over the last 3 days and was at baseline. Patient has longstanding tobacco abuse and this ultimately has been underlying etiology of her worsening lung disease. Patient stable for discharge Disposition: DC- TO HOME OR SELFCARE Final Discharge Diagnosis (Prints w/discharge instructions): Acute hypoxic respiratory failure - Discharge Diagnoses (1) Bilateral pneumonia Status: Acute Comment: Will be discharged home Levaquin total of 5 days. (2) COPD exacerbation Status: Acute Comment: Patient been advised about smoking cessation. State patch would not work. She has tried multiple things. Will follow up with primary care physician. Not willing for Wellbutrin or Chantix at this time. (3) DVT prophylaxis Status: Acute Comment: Lovenox in house. (4) Hypoxia Status: Acute (5) Chronic back pain Status: Acute Comment: Asked for medication for herniated disc we will give a few tablets until follow-up. (6) Suspected COVID-19 virus infection Status: Acute Comment: Patient asked for medication for herniated disc. Covid ruled out Core Measure Documentation - Palliative Care Palliative Care/ Comfort Measures: Not Applicable - Core Measures Any of the following diagnoses?: none Exam - Constitutional Vitals: Temp Pulse Resp BP Pulse Ox 98.7 F 57 L 18 156/58 93 08/22/20 05:13 08/22/20 05:13 08/22/20 06:36 08/22/20 05:13 08/22/20 05:13 General appearance: Present: no acute distress, well-nourished - EENT Eyes: Present: PERRL ENT: hearing intact, clear oral mucosa - Neck Neck: Present: supple, normal ROM - Respiratory Respiratory effort: normal Respiratory: bilateral: CTA, rhonchi, wheezing (Coarse breath sounds much improved. Majority of smoker's cough) - Cardiovascular Heart Sounds: Present: S1 & S2. Absent: rub, click - Extremities Extremities: pulses symmetrical, No edema Peripheral Pulses: within normal limits - Abdominal General gastrointestinal: Present: soft, non-tender, non-distended, normal bowel sounds Female genitourinary: Present: normal - Integumentary Integumentary: Present: clear, warm, dry - Musculoskeletal Musculoskeletal: gait normal, strength equal bilaterally - Psychiatric Psychiatric: appropriate mood/affect, intact judgment & insight - Neurologic Neurologic: CNII-XII intact, moves all extremities Plan Activity: fall precautions Weight Bearing Status: Full Weight Bearing Diet: low cholesterol, low salt, low carbohydrate Durable Medical Equipment Needed Upon Discharge: Nebulizer Follow up with: PRIMARY CARE,MD [Primary Care Provider] - 3-5 Days Prescriptions: Albuterol Sulfate [Proair Respiclick] 90 mcg IH PRN #1 Pantoprazole [Protonix TAB] 40 mg PO BID #30 tablet ALBUTEROL NEB's [Proventil 0.083% NEBS] 2.5 mg IH Q4H PRN #14 nebu PRN Reason: Shortness Of Breath Cholecalciferol (Vitamin D3) [Vitamin D3] 5,000 unit PO DAILY #10 tablet ALPRAZolam [Xanax TAB] 1 mg PO BID #60 tablet
[2020-08-22] MEDS ORDERED: levoFLOXacin 750 MG TAB PO SCH (12:00)
[2020-08-22 14:10] VITALS: BP 145/66
[2020-08-23] MEDS ORDERED: AZITHROMYCIN 250 MG TAB PO SCH (10:00)
--- NOTE | 2020-08-25 10:49 | Electrocardiograph Report ---
[facility] Test Date: 2020-08-19 Test Time: 23:40:52 Pat Name: ANIKA BRIONES Department: Room: A369 1 Gender: F Lpn Care Manager: SABRINA : 1970 Requested By: MANN SINGH Order Number: [id number] Reading MD: Mando Paniagua Measurements Intervals [place] Rate: 81 P: 56 CT: 158 QRS: 32 QRSD: 94 T: 41 QT: 405 QTc: 471 Interpretive Statements Sinus rhythm No previous ECG available for comparison Electronically Signed On 08-25-2020 10:49:17 EDT by Mando Paniagua
== END 2020-08-22 14:09 | disposition home or self-care (01) | DRG 193 ==
LOC: ED 20:09 → 3A 08-20 04:08
PROVIDERS: ADMIT Hospitalist; ATTEND Internal Medicine
DX: J18.9 Pneumonia, unspecified organism (principal); J96.01 Acute respiratory failure with hypoxia; J44.1 Chronic obstructive pulmonary disease with (acute) exacerbation; Z20.822 Contact with and (suspected) exposure to COVID-19; J44.0 Chronic obstructive pulmonary disease with (acute) lower respiratory infection; I10 Essential (primary) hypertension; J45.909 Unspecified asthma, uncomplicated; F41.9 Anxiety disorder, unspecified; F17.210 Nicotine dependence, cigarettes, uncomplicated; Z79.899 Other long term (current) drug therapy; Z90.710 Acquired absence of both cervix and uterus
CPT/HCPCS: 36415; 71045; 71046; 74176; 80053; 81001; 82962; 83615; 83690; 83880; 84145; 84484; 85007; 85025; 85379; 85610; 86140; 87040; 93005; 94640; 94644; 96365; 96367; 96375; G0378; J0456; J0696; J1650; J1940; J2270; J2405; J2765; J2920; J2930; J3010; J3475; U0003